=== PATIENT | male | born 1995 | race African-American/Black ===

== ENCOUNTER 2023-11-28 18:55 | Inpatient (IN) | payer SELFPAY ==
[2023-11-28 19:03] VITALS: BMI 23.5
[2023-11-28] MEDS ORDERED: ACETAMINOPHEN INJECTION 100 ML IVPB ONE (19:53)
[2023-11-28] MEDS ORDERED: PANTOPRAZOLE SODIUM 40 MG VIAL ONE (19:53)
[2023-11-28] MEDS ORDERED: FAMOTIDINE 20 MG/50 ML IVPB 20 MG/50 ML MG IVPB ONE (19:53)
[2023-11-28] MEDS: PANTOPRAZOLE SODIUM 40 MG VIAL IVPB ONE (20:23)
[2023-11-28] MEDS: SODIUM CHLORIDE 1,000 ML IV STA (20:23)
[2023-11-28] MEDS: FAMOTIDINE 20 MG/50 ML IVPB 20 MG/50 ML MG IVPB ONE (20:23)
[2023-11-28] MEDS: ACETAMINOPHEN 1000 MG/100 ML BAG IVPB ONE (20:23)
[2023-11-28 20:31] LABS: BASO % 0.5 % (0-2.0); EOS % 1.6 % (0-4.5); HEMATOCRIT 44.4 % (35.4-49); HEMOGLOBIN 14.8 GM/dL (11.7-16.9); LYMPH % 24.1 % (8-40); MCH 28.8 pg (25.7-33.7); MCHC 33.4 g/dl (32.0-35.9); MEAN CELL VOLUME 86.3 fl (80-96); MEAN PLT VOLUME 10.3 fl (7.5-11.1); MONO % 8.6 % (3.8-10.2); NEUT % 65.2 % (42.8-82.8); PLATELET COUNT 122 10^3/uL (134-434); RBC 5.15 M/mm3 (4.00-5.60); RDW 14.1 % (11.9-15.9)
[2023-11-28 20:44] LABS: INR 1.07 (0.83-1.09); PROTHROMBIN TIME (PATIENT) 12.1 SEC (9.7-13.0)
[2023-11-28 20:47] LABS: POTASSIUM 3.4 mmol/L (3.5-5.1)
[2023-11-28 20:49] LABS: CALCIUM 9.6 mg/dL (8.5-10.1)
[2023-11-28 20:50] LABS: ALBUMIN 4.5 g/dl (3.4-5.0); BLOOD UREA NITROGEN 15.4 mg/dL (7-18)
[2023-11-28 20:52] LABS: CREATININE 1.1 mg/dL (0.55-1.3)
[2023-11-28 20:54] LABS: BILIRUBIN,TOTAL 1.5 mg/dL (0.2-1)
[2023-11-28] MEDS ORDERED: ONDANSETRON 4 MG/2 ML VIAL IVPUSH PRN (23:37)
[2023-11-28] MEDS ORDERED: ACETAMINOPHEN 500 MG TABLET (FP) PO PRN (23:38)
[2023-11-28] MEDS ORDERED: LACTATED RINGERS SOLUTION 1,000 ML/1,000 ML INFUS.BAG IV SCH (23:45)
[2023-11-29] MEDS: SODIUM CHLORIDE 0.9%/KCL 20 MEQ/1,000 ML INFUS.BAG IV SCH ×3 (01:53→11:03)
[2023-11-29 01:56] LABS: METHADONE, UR NEGATIVE (NEGATIVE); PHENCYCLIDINE,URINE NEGATIVE (NEGATIVE); URINE BARBITURATES NEGATIVE (NEGATIVE); URINE BENZODIAZEPINES NEGATIVE (NEGATIVE)
[2023-11-29 01:57] LABS: COCAINE, UR NEGATIVE (NEGATIVE); OPIATES, URI NEGATIVE (NEGATIVE); URINE AMPHETAMINES NEGATIVE (NEGATIVE)
[2023-11-29 07:39] LABS: CHLORIDE 106 mmol/L (98-107); POTASSIUM 3.6 mmol/L (3.5-5.1); SODIUM 138 mmol/L (136-145)
[2023-11-29 07:42] LABS: CALCIUM 8.8 mg/dL (8.5-10.1)
[2023-11-29 07:43] LABS: ANION GAP 2 mmol/L (4-13); BLOOD UREA NITROGEN 12.4 mg/dL (7-18); CO2 30 mmol/L (21-32); GLUCOSE,RANDOM 87 mg/dL (74-106)
[2023-11-29 07:45] LABS: HEMATOCRIT 42.4 % (35.4-49); HEMOGLOBIN 14.2 GM/dL (11.7-16.9); MCHC 33.5 g/dl (32.0-35.9); MEAN CELL VOLUME 86.6 fl (80-96); MEAN PLT VOLUME 10.7 fl (7.5-11.1); PLATELET COUNT 112 10^3/uL (134-434); RDW 14.2 % (11.9-15.9); WHITE BLOOD COUNT 4.5 K/mm3 (4.0-10.0)
[2023-11-29 07:46] LABS: CREATININE 1.2 mg/dL (0.55-1.3)
[2023-11-29 07:47] LABS: MAGNESIUM 1.8 mg/dL (1.8-2.4)
[2023-11-29 07:49] LABS: ALBUMIN 3.9 g/dl (3.4-5.0)
[2023-11-29 07:50] LABS: BILIRUBIN,DIRECT 0.3 mg/dL (0.0-0.2)
[2023-11-29 07:51] LABS: PHOSPHOROUS 2.2 mg/dL (2.5-4.9)
[2023-11-29 07:52] LABS: BILIRUBIN,DIRECT 0.3 mg/dL (0.0-0.2)
[2023-11-29 07:54] LABS: BILIRUBIN,TOTAL 1.6 mg/dL (0.2-1); TOT PROT 7.2 g/dl (6.4-8.2)
[2023-11-29] MEDS ORDERED: PANTOPRAZOLE 40 MG TABLET PO ONE (13:18)
[2023-11-29] MEDS: PANTOPRAZOLE 40 MG TABLET PO SCH (13:21)
[2023-11-29 22:36] LABS: HIV INTERPRETATION NEGATIVE (NEGATIVE)
[2023-11-29 23:27] VITALS: BP 129/79; PULSE 52; RESP 19; TEMP 97.8
== END 2023-11-29 23:00 | disposition left against medical advice (07) | DRG 249 ==
LOC: JER 18:55 → JERBED 22:00 → OBSVTOIN 11-29 08:48
PROVIDERS: ADMIT Internal Medicine; ATTEND Internal Medicine
DX: A09 Infectious gastroenteritis and colitis, unspecified (principal); R11.2 Nausea with vomiting, unspecified; K62.5 Hemorrhage of anus and rectum; F12.90 Cannabis use, unspecified, uncomplicated; E87.6 Hypokalemia; E80.6 Other disorders of bilirubin metabolism; R00.1 Bradycardia, unspecified; R55 Syncope and collapse; K64.8 Other hemorrhoids
CPT/HCPCS: 36415; 70450-TC; 74177-TC; 80048; 80053; 80076; 80307; 82248; 83605; 83690; 83735; 84100; 84484; 85025; 85027; 85610; 85651; 85730; 86140; 86850; 86900; 86901; 87045; 87046; 87086; 87186; 87205; 87389; 87425; 87798; 93005; 93010; 93306-TC; 99285-25; G0378; J0131; Q9967